=== PATIENT | female | born 1985 | race Caucasian/White ===

== ENCOUNTER 2017-09-10 09:57 | Emergency (ER) | payer MEDICAID ==
[2012-04-07 06:18] VITALS: BMI 21.6
[2017-09-10 11:42] LABS: HCG URINE NEGATIVE (NEGATIVE)
[2017-09-10 11:44] LABS: APPEARANCE CLEAR (CLEAR); BILIRUBIN NEGATIVE (NEGATIVE); COLOR YELLOW (YELLOW); GLUCOSE NEGATIVE (NEGATIVE); KETONE NEGATIVE (NEGATIVE); NITRITE NEGATIVE (NEGATIVE); PROTEIN NEGATIVE (NEGATIVE); UROBILINOGEN NORMAL (NORMAL)
[2017-09-10 11:52] LABS: BASOPHILS 0.5 % (0-2); EOSINOPHILS 2.6 % (0-7); HEMATOCRIT 43.6 % (36.0-48.0); HEMOGLOBIN 14.1 g/dL (12-16); MCH 31.3 pg (26.0-34.0); MCHC 32.3 g/dL (31.0-37.0); MCV 96.9 fL (80.0-100.0); MEAN PLATELET VOLUME 10.7 fL (7.4-10.4); MONOCYTES 8.6 % (2-11); NEUTROPHILS 44.3 % (40-80); RDW 13.7 % (11.5-14.5); WBC 5.5 10x3/uL (4.8-10.8)
[2017-09-10 11:58] LABS: PLATELET COUNT 239 10x3/uL (130-400)
[2017-09-10 12:03] LABS: ALBUMIN 3.7 g/dL (3.4-5.0); ALKALINE PHOSPHATASE 138 U/L (46-116); ALT (SGPT) 22 U/L (10-68); CALC OSMOLALITY 277 mosm/kg (275-300); CALCIUM 8.6 mg/dL (8.5-10.1); CHLORIDE - SERUM 104 mmol/L (98-107); CREATININE - SERUM 0.7 mg/dL (0.6-1.3); GLUCOSE 90 mg/dL (74-106); POTASSIUM - SERUM 4.1 mmol/L (3.5-5.1); PROTEIN - SERUM 7.1 g/dL (6.4-8.2); SODIUM 140 mmol/L (136-145); UREA NITROGEN 11 mg/dL (7-18); eGFR NON AFRICAN AMERICAN > 90 mL/min (90-120)
[2017-11-06 07:15] VITALS: BMI 23.3
== END 2017-09-10 12:30 | disposition home or self-care (01) ==
LOC: D.ER 09:57
PROVIDERS: Physician Assistant
DX: R10.2 Pelvic and perineal pain (principal)

== ENCOUNTER 2017-09-27 18:30 | Emergency (ER) | payer MEDICAID ==
[2012-04-07 06:18] VITALS: BMI 21.6
[2017-09-27 18:49] LABS: APPEARANCE HAZY (CLEAR); BILIRUBIN NEGATIVE (NEGATIVE); COLOR YELLOW (YELLOW); GLUCOSE NEGATIVE (NEGATIVE); KETONE NEGATIVE (NEGATIVE); NITRITE NEGATIVE (NEGATIVE); PROTEIN TRACE mg/dL (NEGATIVE); UROBILINOGEN NORMAL (NORMAL)
[2017-09-27 18:51] LABS: BACTERIA FEW /hpf (NONE SEEN); EPITHELIAL CELLS 0-5 /hpf (0-5); RED CELLS - URINE RARE /hpf (0-5)
== END 2017-09-27 20:23 | disposition home or self-care (01) ==
LOC: D.ER 18:30
PROVIDERS: Emergency Medicine
DX: N39.0 Urinary tract infection, site not specified (principal); F17.200 Nicotine dependence, unspecified, uncomplicated

== ENCOUNTER 2017-11-06 05:30 | Day surgery (SDC) | payer MEDICAID ==
[~2017-11-06] VITALS: Ht 165.1 cm; Wt 63.5 kg
--- NOTE | ~2017-11-06 | OP ---
PATIENT NAME: STEVE AMBROSIO MEDICAL RECORD: [id number] LOCATION:D.FORMERLY [facility] ADMISSION DATE: SURGEON: SAMSON SWEET MD DATE OF OPERATION: 11/06/2017 PREOPERATIVE DIAGNOSIS: Pelvic pain. POSTOPERATIVE DIAGNOSES: 1. Pelvic infection including Xsoj-Exvp-Ejwten syndrome. 2. Filmy adhesions involving the bilateral adnexa. 3. Gjpc-Yvhl-Lwgkdt syndrome as mentioned. 4. Retroverted boggy uterus consistent with adenomyosis. PROCEDURES: Diagnostic laparoscopy and lysis of adhesions. SPECIMENS: None. OPERATIVE DIAGNOSIS: Pelvic pain. ESTIMATED BLOOD LOSS: Minimal. COMPLICATIONS: None apparent. DESCRIPTION OF PROCEDURE: The patient was taken to operating room where general anesthesia was achieved without difficulty. The patient was then prepped and draped in normal sterile fashion in the dorsal lithotomy position in the [facility]. The bladder was straight cathed with approximately 300 cc of clear yellow urine and a sponge stick was placed in the vagina for uterine elevation. At this point, a 5-mm incision was made infraumbilically and the 5-mm bladeless trocar was used to enter the intraperitoneal space under direct visualization of the laparoscope. The patient was then insufflated, opening pressure was found to be 5 mmHg. The introducer was removed, and the scope was then placed into the intraperitoneal cavity under direct visualization. At this point, a 5-mm incision was made in the midline approximately 5 cm above the pubic symphysis. A 5-mm skin incision was made and the 5-mm bladeless trocar was placed under direct visualization of the laparoscope. Fluid in the dependent part of the pelvis was suctioned. Multiple adhesions were then bluntly dissected involving the left adnexa and left pelvic sidewall. No evidence of TOA was noted. The uterus had a boggy appearance consistent with adenomyosis and Ogql-Eygo-Uigguy syndrome was noted in the right upper quadrant. The instruments were then removed. The patient was desufflated, and the skin repaired with 3-0 Monocryl in an interrupted fashion. The patient tolerated the procedure well, transferred to postanesthesia recovery stable without incident. TRANSINT:[id number] Voice Confirmation ID: [id number] DOCUMENT ID: [id number] SAMSON SWEET MD CC: [id number] DICTATION DATE: 11/06/17817 SEALANT MIXER: 11/06/17 1033 DEP SDC 11/06/17 [place] [id number] [place] [address]
[2017-11-06 06:21] VITALS: BP 98/59; BMI 23.3
[2017-11-06 06:53] LABS: HCG URINE NEGATIVE (NEGATIVE)
[2017-11-06 07:15] VITALS: Ht 165.1 cm; Wt 63.5 kg
== END 2017-11-06 10:10 | disposition home or self-care (01) ==
LOC: D.OPS 05:30 → D.PAN 07:30 → D.OPS 07:30
PROVIDERS: Obstetrics & Gynecology
DX: A74.81 Chlamydial peritonitis (principal); K66.0 Peritoneal adhesions (postprocedural) (postinfection); N85.4 Malposition of uterus; F20.9 Schizophrenia, unspecified; G89.29 Other chronic pain; Z88.5 Allergy status to narcotic agent; Z88.0 Allergy status to penicillin; F17.200 Nicotine dependence, unspecified, uncomplicated; Z01.812 Encounter for preprocedural laboratory examination

== ENCOUNTER 2020-04-13 14:30 | Emergency (ER) | payer MEDICAID ==
[~2020-04-13] VITALS: Ht 165.1 cm; Wt 68.2 kg
[2020-04-13 14:40] VITALS: Ht 165.1 cm; Wt 68.2 kg
[2020-04-13 15:09] LABS: HEMATOCRIT 47.6 % (36.0-48.0); HEMOGLOBIN 15.4 g/dL (12-16); LYMPHOCYTES 23.8 % (15-50); MCHC 32.4 g/dL (31.0-37.0); MEAN PLATELET VOLUME 9.9 fL (7.4-10.4); NEUTROPHILS 69.5 % (40-80); RBC 4.96 10x6/uL (4.00-5.40); RDW 13.7 % (11.5-14.5); WBC 13.7 10x3/uL (4.8-10.8)
[2020-04-13 15:11] LABS: PLATELET COUNT 347 10x3/uL (130-400)
[2020-04-13 15:13] LABS: HCG URINE NEGATIVE (NEGATIVE)
[2020-04-13 15:14] LABS: BILIRUBIN NEGATIVE (NEGATIVE); GLUCOSE NEGATIVE (NEGATIVE); KETONE NEGATIVE (NEGATIVE); NITRITE NEGATIVE (NEGATIVE); SPECIFIC GRAVITY 1.015 (1.005-1.020); UROBILINOGEN NORMAL (NORMAL)
[2020-04-13 15:16] LABS: CALC OSMOLALITY 273 mosm/kg (275-300); CALCIUM 9.8 mg/dL (8.5-10.1); CARBON DIOXIDE 29.1 mmol/L (21.0-32.0); CHLORIDE - SERUM 99 mmol/L (98-107); CREATININE - SERUM 1.3 mg/dL (0.6-1.3); GLUCOSE 95 mg/dL (74-106); POTASSIUM - SERUM 3.9 mmol/L (3.5-5.1); SODIUM 137 mmol/L (136-145); UREA NITROGEN 13 mg/dL (7-18); eGFR NON AFRICAN AMERICAN 50 mL/min (90-120)
[2020-04-13 15:23] LABS: BACTERIA FEW /hpf (NEGATIVE); EPITHELIAL CELLS 0-5 /hpf (0-5); RED CELLS - URINE 0-5 /hpf (0-5)
[2020-04-13 15:25] LABS: ALBUMIN 4.1 g/dL (3.4-5.0); ALKALINE PHOSPHATASE 171 U/L (30-120); ALT (SGPT) 134 U/L (10-68); AMYLASE - SERUM 63 U/L (25-115); BILIRUBIN - TOTAL 0.27 mg/dL (0.2-1.3); LIPASE 113 U/L (73-393); PROTEIN - SERUM 8.4 g/dL (6.4-8.2)
[2020-04-13 15:29] LABS: TROPONIN-I < 0.017 ng/mL (0.000-0.060)
[2020-04-13] MEDS ORDERED: MACROBID100 MG PO (16:42)
[2020-04-13] MEDS ORDERED: BENTYL 20 MG TA20 MG PO (16:42)
[2020-04-13] MEDS ORDERED: ZOFRAN ODT4 MG/UDTAB PO (16:42)
[2020-04-13 17:11] VITALS: BP 114/81
== END 2020-04-13 17:12 | disposition home or self-care (01) ==
LOC: D.ER 14:30
PROVIDERS: Emergency Medicine
DX: N39.0 Urinary tract infection, site not specified (principal); R10.30 Lower abdominal pain, unspecified

== ENCOUNTER 2020-07-01 16:46 | Emergency (ER) | payer MEDICAID ==
[~2020-07-01 16:46] MED LIST: BENTYL 20 MG TA20 MG PO; MACROBID100 MG PO; ZOFRAN ODT4 MG/UDTAB PO
[2020-07-01 16:53] VITALS: BP 112/63; Ht 165.1 cm
[2020-07-01 18:39] LABS: ALKALINE PHOSPHATASE 189 U/L (30-120); ALT (SGPT) 27 U/L (10-68); BILIRUBIN - TOTAL 0.79 mg/dL (0.2-1.3); CALC OSMOLALITY 273 mosm/kg (275-300); CARBON DIOXIDE 24.2 mmol/L (21.0-32.0); CHLORIDE - SERUM 105 mmol/L (98-107); CKMB 3.1 U/L (0.0-3.6); CREATINE KINASE 453 UL (21-215); CREATININE - SERUM 0.8 mg/dL (0.6-1.3); GLUCOSE 89 mg/dL (74-106); PRO BNP 22 pg/mL (0-125); PROTEIN - SERUM 7.9 g/dL (6.4-8.2); SODIUM 138 mmol/L (136-145); UREA NITROGEN 11 mg/dL (7-18); eGFR NON AFRICAN AMERICAN 88 mL/min (90-120)
[2020-07-01 18:42] LABS: POTASSIUM - SERUM 2.6 mmol/L (3.5-5.1); TROPONIN-I < 0.017 ng/mL (0.000-0.060)
[2020-07-01 18:52] LABS: APTT 25.2 SECONDS (22.8-39.4); INR 1.09 (0.85-1.17)
[2020-07-01 19:00] LABS: HEMOGLOBIN 13.9 g/dL (12-16); MCH 31.4 pg (26.0-34.0); MCHC 33.9 g/dL (31.0-37.0); MCV 92.6 fL (80.0-100.0); MEAN PLATELET VOLUME 11.2 fL (7.4-10.4); RBC 4.43 10x6/uL (4.00-5.40); RDW 13.9 % (11.5-14.5); WBC 9.7 10x3/uL (4.8-10.8)
[2020-07-01 19:01] LABS: PLATELET COUNT 136 10x3/uL (130-400)
[2020-07-01 19:26] LABS: EOSINOPHILS 2 % (0-7); LYMPHOCYTES 31 % (15-50); MONOCYTES 7 % (2-11); NEUTROPHILS 60 % (40-80); PLATELET ESTIMATE DECREASED
== END 2020-07-01 18:08 | disposition left against medical advice (07) ==
LOC: D.ER 16:46
PROVIDERS: Family Medicine
DX: F15.90 Other stimulant use, unspecified, uncomplicated (principal); Z53.21 Procedure and treatment not carried out due to patient leaving prior to being seen by health care provider